=== PATIENT | female | born 1945 ===

== ENCOUNTER 2017-07-24 05:30 | Day surgery (SDC) | payer OTHER ==
[~2017-07-24 05:30] MED LIST: ENALAPRIL MALEA10 MG PO; FORTAMET1000 MG PO; GLYPIZDE PO; JANUVIA100 MG PO; SYNTHROID137 MCG PO; ZOCOR20 MG PO
== END 2017-07-24 10:20 | disposition home or self-care (01) ==
LOC: CIR.AMB 05:30
DX: G56.01 Carpal tunnel syndrome, right upper limb (principal)